=== PATIENT | male | born 1945 | race Caucasian/White ===

== ENCOUNTER 2021-03-15 11:27 | Observation (INO) | payer MEDICARE, BC ==
[~2021-03-15] VITALS: Ht 172.7 cm; Wt 68.0 kg
--- NOTE | 2021-03-15 11:35 | NUR ---
PT TO ROOM FOR EXAM AMBLATORY WITH
[2021-03-15 12:11] LABS: HEMATOCRIT 49.6 % (39.0-50.0); HEMOGLOBIN 16.1 g/dl (14.0-18.0); IMMATURE GRANULOCYTES 0.2 % (0.0-5.0); MEAN CELL VOLUME 85.7 fL CALC (80.0-100.0); MEAN CORPUSCULAR HGB 27.8 pG CALC (26.0-32.0); MEAN CORPUSCULAR HGB CONC 32.5 g/dL CAL (32.0-36.0); NEUT# 2.84 thou/uL (1.82-7.42); RED BLOOD COUNT 5.79 mill/uL (4.70-6.10); RED CELL DISTRI WIDTH 13.4 % (11.5-15.5)
[2021-03-15 12:21] LABS: ALBUMIN 4.3 g/dL (3.2-5.0); ALKALINE PHOSPHATASE 91 u/l (38-126); ANION GAP 16 (6-22 (CALC)); BILIRUBIN, TOTAL 0.5 mg/dL (0.0-1.4); BUN 33 mg/dL (8-23); BUN/CREATININE RATIO 24 (12-20 (CALC)); CARBON DIOXIDE 23 mmol/l (22-30); CHLORIDE 107 mmol/l (95-108); CREATININE 1.3 mg/dL (0.7-1.3); GFR 54 ML/MIN (>=60 (CALC)); GFR FOR AFR.AMER. > 60 ML/MIN (>=60 (CALC)); POTASSIUM 4.5 mmol/l (3.5-5.1); SGOT/AST 41 u/l (19-48); SODIUM 142 mmol/l (137-146); TOTAL PROTEIN 7.8 g/dL (6.3-8.2)
--- NOTE | 2021-03-15 12:40 | NUR ---
PT RESTING QUIETLY ON STRETCHER, ADVISED PT OF FLU AND COVID POSITIVE, DID A RESPIRATORY PANEL PER ORDER TO BE SENT TO HEALTH DEPT.
[2021-03-15 13:07] LABS: URINE BILIRUBIN - DIPSTICK NEGATIVE (NEGATIVE); URINE BLOOD DIPSTICK NEGATIVE (NEGATIVE); URINE COLOR YELLOW; URINE GLUCOSE - DIPSTICK NEGATIVE (NEGATIVE); URINE KETONE TRACE mg/dL (NEGATIVE); URINE LEUK ESTERASE NEGATIVE (NEGATIVE); URINE PROTEIN - DIPSTICK NEGATIVE (NEG-TRACE); URINE SPECIFIC GRAVITY 1.025; URINE UROBILINOGEN - DIPSTICK 0.2 E.U./dL (0.2)
[2021-03-15 13:28] LABS: URINE NITRITE - DIPSTICK NEGATIVE (Negative)
--- NOTE | 2021-03-15 14:04 | NUR ---
PT DENIES ANY PAIN AT THIS TIME, STATES JUST FEELS TIRED.
--- NOTE | 2021-03-15 15:37 | NUR ---
SUMAN GU SPEAKING WITH PT. TRIED TO CALL REPORT TO MED SURG BUT NURSE UNABLE TO TAKE REPORT
--- NOTE | 2021-03-15 16:48 | NUR ---
STILL WAITING FOR MED SURG TO CALL FOR REPORT
--- NOTE | 2021-03-15 17:16 | NUR ---
PT TAKEN TO MED SURG PER W/C.
[2021-03-15 17:31] VITALS: BP 117/66
[2021-03-15 18:54] VITALS: BP 117/66
--- NOTE | 2021-03-15 20:00 | NUR ---
telemetry report rec'd per lam peñaloza sr hr 60
--- NOTE | 2021-03-15 21:20 | NUR ---
awake. watching tv. nad. hall monitor shows sinus rhythm hr 60. #20 lfa ivf infusing well. po fluids taken well. voids per urinal. fall & air/contact precautions cont.
[2021-03-16] VITALS: BP 127/68
--- NOTE | 2021-03-16 00:05 | NUR ---
telemetry report rec'd per jh fritz . sb 50.
[2021-03-16 04:00] VITALS: BP 134/70
--- NOTE | 2021-03-16 04:00 | NUR ---
amb per request to bathroom. cassandra jordan. telemetry report rec'd per jh fritz . sr hr 79.
--- NOTE | 2021-03-16 04:52 | NUR ---
xray here. pcxr obtained.
[2021-03-16 05:21] LABS: IMMATURE GRANULOCYTES 0.7 % (0.0-5.0); MEAN CELL VOLUME 87.2 fL CALC (80.0-100.0); MEAN CORPUSCULAR HGB CONC 32.2 g/dL CAL (32.0-36.0); NEUT# 1.64 thou/uL (1.82-7.42); RED BLOOD COUNT 4.85 mill/uL (4.70-6.10); RED CELL DISTRI WIDTH 13.6 % (11.5-15.5)
[2021-03-16 05:38] LABS: HEMATOCRIT 42.3 % (39.0-50.0); HEMOGLOBIN 13.6 g/dl (14.0-18.0)
[2021-03-16 06:00] LABS: ALKALINE PHOSPHATASE 66 u/l (38-126); ANION GAP 11 (6-22 (CALC)); BILIRUBIN, TOTAL 0.4 mg/dL (0.0-1.4); BUN 24 mg/dL (8-23); BUN/CREATININE RATIO 30 (12-20 (CALC)); C-REACTIVE PROTEIN 1.8 mg/dL (0-0.9); CARBON DIOXIDE 22 mmol/l (22-30); CHLORIDE 114 mmol/l (95-108); CREATININE 0.8 mg/dL (0.7-1.3); GFR > 60 ML/MIN (>=60 (CALC)); GFR FOR AFR.AMER. > 60 ML/MIN (>=60 (CALC)); POTASSIUM 4.6 mmol/l (3.5-5.1); SGOT/AST 36 u/l (19-48); SODIUM 142 mmol/l (137-146)
[2021-03-16 06:02] LABS: ALBUMIN 3.1 g/dL (3.2-5.0); TOTAL PROTEIN 5.9 g/dL (6.3-8.2)
--- NOTE | 2021-03-16 08:00 | NUR ---
REPORT RECEIVED FROM CHARLES PONCE. PT AWAKE ALERT AND APPROPRIATE. VSS. SPO2 89% ON RA. PT OOB AND USING RESTROOM WITHOUT THE USE OF OXYGEN PRIOR TO VS CHECK. PLACED ON 2L OF OXYGEN AND SATS EASILY REACH 95%. PT DENIES SOB OR DISCOMFORT. CALL LIGHT WITHIN REACH. INSTRUCTED PT TO CALL FOR ASSISTANCE, VERBALIZES UNDERSTANDING.
[2021-03-16 08:25] VITALS: BP 131/95
--- NOTE | 2021-03-16 10:32 | NUR ---
The patient is screened for PT intervention and no needs are identified at this time
--- NOTE | 2021-03-16 11:35 | NUR ---
6 MINUTE WALK TEST PERFORMED. PT AT REST WITHOUT OXYGEN HAD SAT OF 94%. THROUGHOUT THE WALK SATS REMAINED AROUND 93%, BUT DID BRIEFLY DROP TO 91%. UPON RESTING AAIN WITHOUT OXYGEN SATS RETURNED TO 94%. PT DID SAY, HE FELT SLIGHTLY WINDED DURING THE WALK, BUT NOT BAD. DOCUMENTATION COMPLETED AND PLACED IN CHART.
[2021-03-16] MEDS ORDERED: PEPCID20 MG PO (11:44)
[2021-03-16] MEDS ORDERED: ASPIRIN REGULA325 M1 PO (11:44)
[2021-03-16] MEDS ORDERED: ZPAK PO (11:44)
[2021-03-16] MEDS ORDERED: TAM75CAP PO (11:44)
--- NOTE | 2021-03-21 11:21 | NUR ---
Pneumonia post discharge follow up call completed today. Pt. states he is not doing great. Feels he may be slightly more SOB, still having intermittent fevers. Ow sats no higher than 91. Having difficulty eating or drinking. Everything tastes terrible. Pt. feels he may be hydrated. Discussed possible options for food or drink. He will try. Pt. is taking medication prescribed at discharge without issue. No follow up appt. has been made. PCP is in [place]. Instructed pt to come to ED if he feels he is getting worse. If he is not able to eat or drink in the next day or so, he needs to contact us. Pt. lives with who is monitoring his progress closely. No needs or concerns expressed at this time.
== END 2021-03-16 13:10 | disposition home or self-care (01) ==
LOC: ED 11:27 → ED-I 13:27 → ED 14:07 → MS2 14:08
PROVIDERS: Family Medicine; Nurse Practitioner; ADMIT Hospitalist; ATTEND Hospitalist
DX: U07.1 COVID-19 (principal); J10.1 Influenza due to other identified influenza virus with other respiratory manifestations; N17.9 Acute kidney failure, unspecified; I71.4 Abdominal aortic aneurysm, without rupture
CPT/HCPCS: G0378; J1650

== ENCOUNTER 2021-03-22 10:42 | Inpatient (IN) | payer MEDICARE, BC ==
[~2021-03-22] VITALS: Ht 172.7 cm; Wt 67.0 kg
[~2021-03-22 10:42] MED LIST: ASPIRIN REGULA325 M1 PO; PEPCID20 MG PO; TAM75CAP PO; ZPAK PO
--- NOTE | 2021-03-22 11:15 | NUR ---
PT TO ROOM 14 VIA WC ABLE TO STAND AND TRANSFER SELF TO STRETCHER.
[2021-03-22 12:12] LABS: HEMATOCRIT 45.9 % (39.0-50.0); IMMATURE GRANULOCYTES 0.7 % (0.0-5.0); MEAN CELL VOLUME 85.5 fL CALC (80.0-100.0); MEAN CORPUSCULAR HGB 27.9 pG CALC (26.0-32.0); MEAN CORPUSCULAR HGB CONC 32.7 g/dL CAL (32.0-36.0); NEUT# 6.07 thou/uL (1.82-7.42); RED BLOOD COUNT 5.37 mill/uL (4.70-6.10); RED CELL DISTRI WIDTH 13.4 % (11.5-15.5)
[2021-03-22 12:27] LABS: ALBUMIN 3.6 g/dL (3.2-5.0); ALKALINE PHOSPHATASE 65 u/l (38-126); ANION GAP 15 (6-22 (CALC)); BUN 27 mg/dL (8-23); BUN/CREATININE RATIO 31 (12-20 (CALC)); CARBON DIOXIDE 23 mmol/l (22-30); CHLORIDE 111 mmol/l (95-108); CREATININE 0.9 mg/dL (0.7-1.3); GFR > 60 ML/MIN (>=60 (CALC)); GFR FOR AFR.AMER. > 60 ML/MIN (>=60 (CALC)); SGOT/AST 29 u/l (19-48); SODIUM 145 mmol/l (137-146)
[2021-03-22 12:33] LABS: TOTAL PROTEIN 7.2 g/dL (6.3-8.2)
[2021-03-22 13:11] LABS: C-REACTIVE PROTEIN 5.3 mg/dL (0-0.9)
--- NOTE | 2021-03-22 14:16 | NUR ---
REPORT TO [facility]
--- NOTE | 2021-03-22 14:52 | NUR ---
PATIENT TAKEN TO MED/SURG 267
--- NOTE | 2021-03-22 15:46 | NUR ---
RECEIVE REPORT FROM [facility]. PATIENT STABLE NO REPORT PAIN OR DISCONFORT. PATIENT IN O2 2L NASAL CANNULA. VITAL SIGNS STABLE AT THIS TIME. COMPLETE ADMISSION PROCESS EDUCATED PATIENT ABOUT MEDICATIONS, NURSING AND CLINICAL PLAN. PATIENT REPORT UNDERSTAND
[2021-03-22 15:49] VITALS: BP 137/65
[2021-03-22 18:50] VITALS: BP 142/78
--- NOTE | 2021-03-22 19:35 | NUR ---
PT RESTING IN BED WATCHING TV, NO SIGNS OF DISTRESS NOTED, RESP EVEN AND UNLABORED, PT ALERT AND ORIENTED X3, DISCUSSED POC, PT ON 02 2L NC, DENIES ANY COMPLAINTS AT THIS TIME, SKIN INTACT, IV TO RAC FLUSHED WELL. ASSESSMENT REVIEW COMPLETED, CALL LIGHT IN REACH,CONTINUE TO MONITOR.
--- NOTE | 2021-03-22 21:14 | NUR ---
PT RESTING IN BED, NO SIGNS OF DISTRESS NOTED, RESP EVEN AND UNLABORED. PT MEDICATED PER MAR, FLUTTER VALVE AND INCENTIVE SPIROMETER. PT EDUCATED ON USE, INCENTIVE SPIROMETER TOTAL VOLUME 2000ML X10 REPETITIONS, FLUTTER VALVE 200 X5 REPETITIONS PT TOLERATED WELL, ENCOURAGED ITS USE. CALL LIGHT IN REACH,CONTINUE TO MONITOR.
[2021-03-23] VITALS: BP 128/74
--- NOTE | 2021-03-23 | NUR ---
PT RESTING IN BED, WITH EYES CLOSED, EASILY AROUSED TO VERBAL STIMULI, VOICES NO NEEDS OR COMPLAINTS AT THIS TIME, WARM BLANKET PROVIDED. CALL LIGHT IN REACH,CONTINUE TO MONITOR.
[2021-03-23 04:00] VITALS: BP 143/86
--- NOTE | 2021-03-23 04:00 | NUR ---
PT RESTING IN BED, NO SIGNS OF DISTRESS NOTED, RESP EVEN AND UNLABORED. GRAVITY FLOW IRRIGATOR AT BEDSIDE OBTAINING LABS, VOICES NO NEEDS OR COMPLAINTS AT THIS TIME, CALL LIGHT IN REACH,CONTINUE TO MONITOR.
[2021-03-23 05:15] LABS: HEMATOCRIT 40.6 % (39.0-50.0); HEMOGLOBIN 13.4 g/dl (14.0-18.0); IMMATURE GRANULOCYTES 0.7 % (0.0-5.0); MEAN CELL VOLUME 85.1 fL CALC (80.0-100.0); MEAN CORPUSCULAR HGB 28.1 pG CALC (26.0-32.0); NEUT# 4.18 thou/uL (1.82-7.42); RED BLOOD COUNT 4.77 mill/uL (4.70-6.10); RED CELL DISTRI WIDTH 13.3 % (11.5-15.5)
[2021-03-23 05:22] LABS: ALKALINE PHOSPHATASE 59 u/l (38-126); ANION GAP 12 (6-22 (CALC)); BILIRUBIN, TOTAL 0.6 mg/dL (0.0-1.4); BUN 25 mg/dL (8-23); BUN/CREATININE RATIO 33 (12-20 (CALC)); C-REACTIVE PROTEIN 5.1 mg/dL (0-0.9); CALCULATED LDLCHOLESTEROL 86 mg/dL (62-129 (CALC)); CARBON DIOXIDE 21 mmol/l (22-30); CHLORIDE 116 mmol/l (95-108); CHOLESTEROL HDL RATIO 5.2 (<4.4 (CALC)); CREATININE 0.7 mg/dL (0.7-1.3); GFR > 60 ML/MIN (>=60 (CALC)); GFR FOR AFR.AMER. > 60 ML/MIN (>=60 (CALC)); HDL CHOLESTEROL 27 mg/dL (>=40); MAGNESIUM 2.3 mg/dL (1.6-2.3); POTASSIUM 4.2 mmol/l (3.5-5.1); SGOT/AST 26 u/l (19-48); SODIUM 144 mmol/l (137-146); TOTAL CHOLESTEROL 139 mg/dl (0-199); TOTAL PROTEIN 5.8 g/dL (6.3-8.2); TOTAL TRIGLYCERIDES 131 mg/dl (30-149); VLDL CHOLESTROL 26 mg/dl (0-38 (CALC))
[2021-03-23 08:00] VITALS: BP 143/86
--- NOTE | 2021-03-23 10:40 | NUR ---
REPORT RECEIVE THIS MORNING FROM [facility]. PATIENT ALERT AND ORIENTED X3. NO RESPIRATORY DISTRESS. EDUCATED PATIENT ABOUT MEDICATIONS AND NURSING CARE FOR TODAY PATIENT REFER UNDERSTAND.
[2021-03-23 11:01] VITALS: BP 136/78
[2021-03-23 15:19] VITALS: BP 131/70
[2021-03-23 19:00] VITALS: BP 117/72
--- NOTE | 2021-03-23 21:18 | NUR ---
PT RESTING IN BED, NO SIGNS OF DISTRESS NOTED,RESP EVEN AND UNLABORED, PT ALERT AND ORIENTED X3, DISCUSSED POC, PT DENIES ANY NEEDS OR COMPLAINTS AT THIS TIME. 02 2L NC, ENCOURAGED USE OF INCENTIVE SPIROMETER AND FLUTTER VALVE, PT DEMONSTRATED IT'S USE. IV FLUSHED AND INITIATED IV ANTIBIOTIC, ASSESSMENT REVIEW COMPLETED, CALL LIGHT IN REACH,CONTINUE TO MONITOR.
--- NOTE | 2021-03-23 22:39 | NUR ---
IV ANTIBIOTIC INFUSION COMPLETE, PT VOICES NO NEEDS OR COMPLAINTS AT THIS TIME, CALL LIGHT IN REACH,CONTINUE TO MONITOR.
[2021-03-24] VITALS: BP 127/68
--- NOTE | 2021-03-24 | NUR ---
PT RESTING IN BED WATCHING TV, NO SIGNS OF DISTRESS NOTED, RESP EVEN AND UNLAOBRED. CALL LIGHT IN REACH,CONTINUE TO MONITOR.
--- NOTE | 2021-03-24 03:51 | NUR ---
PT RESTING IN BED, NO SIGNS OF DISTRESS NOTED, RESP EVEN AND UNLABORED. PT VOICES NO NEEDS OR COMPLAINTS AT THIS TIME, CALL LIGHT IN REACH,CONTINUE TO MONITOR.
[2021-03-24 04:00] VITALS: BP 130/72
[2021-03-24 05:55] LABS: ALBUMIN 2.9 g/dL (3.2-5.0); ALKALINE PHOSPHATASE 51 u/l (38-126); ANION GAP 13 (6-22 (CALC)); BILIRUBIN, TOTAL 0.5 mg/dL (0.0-1.4); BUN 27 mg/dL (8-23); BUN/CREATININE RATIO 34 (12-20 (CALC)); CARBON DIOXIDE 24 mmol/l (22-30); CHLORIDE 111 mmol/l (95-108); CREATININE 0.8 mg/dL (0.7-1.3); GFR > 60 ML/MIN (>=60 (CALC)); GFR FOR AFR.AMER. > 60 ML/MIN (>=60 (CALC)); POTASSIUM 4.3 mmol/l (3.5-5.1); SGOT/AST 20 u/l (19-48); SODIUM 144 mmol/l (137-146); TOTAL PROTEIN 5.6 g/dL (6.3-8.2)
[2021-03-24 05:56] LABS: HEMATOCRIT 38.5 % (39.0-50.0); IMMATURE GRANULOCYTES 0.4 % (0.0-5.0); MEAN CORPUSCULAR HGB 28.7 pG CALC (26.0-32.0); MEAN CORPUSCULAR HGB CONC 33.8 g/dL CAL (32.0-36.0); NEUT# 7.52 thou/uL (1.82-7.42); RED BLOOD COUNT 4.53 mill/uL (4.70-6.10); RED CELL DISTRI WIDTH 13.3 % (11.5-15.5)
--- NOTE | 2021-03-24 06:00 | NUR ---
PT RESTING IN BED, NO SIGNS OF DISTRESS NOTED, RESP EVEN AND UNLABORED. PT MEDICATED PER MAR, VOICES NO NEEDS OR COMPLAINTS AT THIS TIME, CALL LIGHT IN REACH,CONTINUE TO MONITOR.
--- NOTE | 2021-03-24 08:00 | NUR ---
REPORT RECEIVED FROM CHARLES RAMOS. PT AWAKE ALERT AND APPROPRIATE. VSS, CALL LIGHT WITHIN REACH. PT DOES NOT APPEAR TO BE IN DISTRESS, INSTRUCTED TO CALL FOR ASSISTANCE. STATES UNDERSTANDING.
[2021-03-24 08:13] VITALS: BP 128/70
[2021-03-24 11:00] VITALS: BP 135/70
--- NOTE | 2021-03-24 12:00 | NUR ---
PT RESTING IN BED. SUCCESSFUL USING PORTABLE OXYGEN TANK TO TAKE SHOWER. NO DISTRESS NOTED AT TIME OF EVEN. TEACHER INSTRUMENTAL PRESENT FOR STANDBY ASSISTANCE. VSS. CALL LIGHT WITHIN REACH. PT DENIES PAIN, SOB OR DISCOMFORT. WILL CONTINUE TO MONITOR
[2021-03-24 15:59] VITALS: BP 128/70
--- NOTE | 2021-03-24 16:00 | NUR ---
PT DENIES NEEDS OR CONCERNS. VSS. CALL LIGHT WITHIN REACH. WILL CONTINUE TO MONITOR.
[2021-03-24 19:00] VITALS: BP 130/85
--- NOTE | 2021-03-24 21:00 | NUR ---
PT RESTING IN BED WATCHING TV, NO SIGNS OF DISTRESS NOTED, RESP EVEN AND UNLABORED PT ALERT AND ORIENTED X3, NO EDEMA, CRACKLES IN LUNG BASES ENCOURAGED PT TO USE INCENTIVE SPIROMETER AND FLUTTER VALVE, SKIN INTACT. IV FLUSHED AND INTIATED IV DOXY, 02 2L NC, VOICES NO NEEDS OR COMPLAINTS AT THIS TIME, ASSESSMENT REVIEW COMPLETED, CALL LIGHT IN REACH,CONTINUE TO MONITOR.
[2021-03-25] VITALS (7 sets, daily range): BP systolic 114–131; BP diastolic 62–71
--- NOTE | 2021-03-25 | NUR ---
PT RESTING IN BED, MEDICATED PER MAR, VOICES NO NEEDS OR COMPLAINTS, CALL LIGHT IN REACH,CONTINUE TO MONITOR.
--- NOTE | 2021-03-25 04:00 | NUR ---
PT RESTING IN BED, NO SIGNS OF DISTRESS NOTED, RESP EVEN AND UNLABORED. VOICES NO NEEDS OR COMPLAINTS AT THIS TIME, CALL LIGHT IN REACH,CONTINUE TO MONITOR.
[2021-03-25 05:10] LABS: HEMATOCRIT 37.3 % (39.0-50.0); HEMOGLOBIN 12.4 g/dl (14.0-18.0); IMMATURE GRANULOCYTES 0.7 % (0.0-5.0); MEAN CELL VOLUME 84.4 fL CALC (80.0-100.0); MEAN CORPUSCULAR HGB 28.1 pG CALC (26.0-32.0); MEAN CORPUSCULAR HGB CONC 33.2 g/dL CAL (32.0-36.0); NEUT# 6.99 thou/uL (1.82-7.42); RED BLOOD COUNT 4.42 mill/uL (4.70-6.10); RED CELL DISTRI WIDTH 13.2 % (11.5-15.5)
[2021-03-25 05:37] LABS: ALBUMIN 2.7 g/dL (3.2-5.0); ALKALINE PHOSPHATASE 52 u/l (38-126); ANION GAP 12 (6-22 (CALC)); BILIRUBIN, TOTAL 0.6 mg/dL (0.0-1.4); BUN 26 mg/dL (8-23); BUN/CREATININE RATIO 38 (12-20 (CALC)); C-REACTIVE PROTEIN 1.5 mg/dL (0-0.9); CARBON DIOXIDE 21 mmol/l (22-30); CHLORIDE 110 mmol/l (95-108); CREATININE 0.7 mg/dL (0.7-1.3); GFR > 60 ML/MIN (>=60 (CALC)); GFR FOR AFR.AMER. > 60 ML/MIN (>=60 (CALC)); POTASSIUM 4.3 mmol/l (3.5-5.1); SGOT/AST 32 u/l (19-48); SODIUM 139 mmol/l (137-146); TOTAL PROTEIN 5.2 g/dL (6.3-8.2)
--- NOTE | 2021-03-25 08:52 | NUR ---
PT SITTING IN BED. A&O X3. NO DISTRESS NOTED. O2 VIA NC @2L IN PLACE; O2 TITRATED UP TO 3L PT WAS SUSTAINING 88%. DIRECTOR CARDIOLOGY COUGH NOTED, PT REPORTS OCCASSIONAL PHLEGM PRODUCTION. CLEAR/DIMINISHED BREATH SOUNDS UPON AUSCULTATION. ACTIVE BOWEL SOUNDS X4 QUADRANTS. IV REPLACED PT C/O OF "BURNING" WITH INFUSION OF ABX; REDNESS ALSO NOTED TO IV INSERTION SITE. #22G INITIATED TO LH X1 ATTEMPT BY THIS HOTEL STAFF MEMBER, ABX REINITIATED, PT DENIES ANY BURNING. ICE CREAM MIXER IN PLACE; PT HAS BEEN BRADYCARDIC BUT ASYMPTOMATIC. ASSESSMENT COMPLETED. DISCUSSED POC. ISOLATION PRECAUTIONS IN PLACE. CALL LIGHT WITHIN REACH.
--- NOTE | 2021-03-25 11:00 | NUR ---
DR CARMONA AT BEDSIDE DISCUSSING POC
--- NOTE | 2021-03-25 11:36 | NUR ---
PT SITTING IN BED. ROTARY DRUM DYER COUGH NOTED; ORDERED ROBITUSSIN GIVEN. NO OTHER NEEDS AT THIS TIME. O2 REMAINS UNCHANGED. CALL LIGHT WITHIN REACH.
--- NOTE | 2021-03-25 18:20 | NUR ---
PT SITTING IN BED NO DISTRESS NOTED. O2 REMAINS UNCHANGED. CALL LIGHT WITHIN REACH.
--- NOTE | 2021-03-25 20:43 | NUR ---
PATIENT RESTING IN BED AT THIS TIME WITH HOB ELEVATED.O2 VIA NASAL CANNULA IN PLACE AT 3LPM WITH O2 SAT OF 95%. TELE MONITOR IN PLACE WITH LAST READING 48-HX OF BRADYCARDIA. SALINE LOCK TO LEFT HAND INTACT AND HEALTHY AT THIS TIME. DOXYCYCLINE HUNG ORDERED. LUNGS ARE CLEAR. ABD SOFT WITH ACTIVE BS. LAST BM WAS TODAY. DENIES ANY DIFFICULTY WITH URINATION. NO PEDAL EDEMA NOTED. PULSES ARE PALPABLE. PATIENT WITH OCC PRODUCTIVE COUGH PER PATIENT WITH SMALL AMT OF YELLOW SEACREATIONS. ENCOURAGED TO USE IS Q1H WHILE AWAKE IN REPS OF 10. VERBALIZES UNDERSTANDING. ENCOURAGED PRONING. SAFETY PRECAUTIONS REINFORCED. CALL LIGHT IN REACH. WILL CONT TO MONITOR.
--- NOTE | 2021-03-25 22:46 | NUR ---
SITTING UP IN BED WITH O2 VIA NASAL CANNULA IN PLACE AT 3LPM. DOXYCYCLINE COMPLETED AND LEFT HAND SALINE LOCK FLUSHED. MEDICATED WITH XANAX 0.25MG PO FOR SLEEP. SAFETY PRECAUTIONS REINFORCED. CALL LIGHT IN REACH. WILL CONT TO MONITOR.
--- NOTE | 2021-03-26 00:45 | NUR ---
PATIENT RESTING IN BED AT THIS TIME WITH O2 VIA NASAL CANNULA IN PLACE-LAST O2 SAT WAS 95%. TELE MONITOR IN PLACE WITH LAST READING BEING SB-45. SALINE LOCK TO LEFT HAND INTACT. CALL LIGHT IN REACH. WILL CONT TO MONITOR.
--- NOTE | 2021-03-26 04:24 | NUR ---
PATIENT RESTING IN BED AT THIS TIME WITH O2 VIA NASAL CANNULA IN PLACE AT 3LPM. TELE MONITOR IN PLACE. LAB WORK DRAWN ORDERED. SAFETY PRECAUTIONS REINFORCED CALL LIGHT IN REACH. WILL CONT TO MONITOR.
[2021-03-26 04:41] VITALS: BP 122/60
[2021-03-26 06:02] LABS: HEMATOCRIT 38.5 % (39.0-50.0); HEMOGLOBIN 12.7 g/dl (14.0-18.0); MEAN CELL VOLUME 85.2 fL CALC (80.0-100.0); MEAN CORPUSCULAR HGB 28.1 pG CALC (26.0-32.0); RED BLOOD COUNT 4.52 mill/uL (4.70-6.10); RED CELL DISTRI WIDTH 13.1 % (11.5-15.5)
[2021-03-26 06:28] LABS: ALBUMIN 2.6 g/dL (3.2-5.0); ALKALINE PHOSPHATASE 49 u/l (38-126); ANION GAP 14 (6-22 (CALC)); BILIRUBIN, TOTAL 0.6 mg/dL (0.0-1.4); BUN 23 mg/dL (8-23); BUN/CREATININE RATIO 36 (12-20 (CALC)); CARBON DIOXIDE 20 mmol/l (22-30); CHLORIDE 108 mmol/l (95-108); CREATININE 0.6 mg/dL (0.7-1.3); GFR > 60 ML/MIN (>=60 (CALC)); GFR FOR AFR.AMER. > 60 ML/MIN (>=60 (CALC)); POTASSIUM 4.3 mmol/l (3.5-5.1); SGOT/AST 55 u/l (19-48); SODIUM 138 mmol/l (137-146); TOTAL PROTEIN 5.2 g/dL (6.3-8.2)
--- NOTE | 2021-03-26 06:45 | NUR ---
REPORT REC FROM Feliz FLORES RN
[2021-03-26 08:15] VITALS: BP 124/66
--- NOTE | 2021-03-26 08:15 | NUR ---
PT SITTING IN RECLINER. A&O X3. NO DISTRESS NOTED. PT REPORTS TAKING OFF O2 FOR A "WHILE" 6 MIN WALK TEST PREFORMED AT THIS TIME. O2 VIA RA 85%. O2 REAPPLIED @3L O2 NOW 90-91%. ENCOURGAED NOT TO TAKE O2 OFF. PT DEMONSTRATING PROPER USE OF IS DEVICE. CLEAR/DIMINSHED BREATH SOUNDS UPON AUSCULTATION. ACTIVE BOWEL SOUNDS X4 QUADRANTS. SENIOR DIRECTOR IN PLACE; SB. #22G LH PATENT. PT WANTING TO BE D/C TODAY. EDUCATED PT ON THE NEED OF O2. ASSESSMENT COMPLETED. DISCUSSED POC. CALL LIGHT WITHIN REACH.
--- NOTE | 2021-03-26 08:39 | NUR ---
PT REFUSED IV DOXY AND NEW IV INITIATION; STATED IT BURNED DURING INFUSION. DR CARMONA NOTIFIED OF PTS REQUEST TO CHANGE TO PO; DR CARMONA AGREEABLE. 6 MIN WALK TEST RESULTS COMMUNICATED WITH AND AURE; ALSO GIVEN TO CM.
[2021-03-26 10:33] VITALS: BP 126/65
--- NOTE | 2021-03-26 10:55 | NUR ---
DR CARMONA AND Melissa WEST MULTIPLE DRUM SANDER AT BEDSIDE DISCUSSING POC
[2021-03-26] MEDS ORDERED: VIBRAMYCIN100 M2 PO (11:02)
[2021-03-26] MEDS ORDERED: DECADRON6 MG PO (11:02)
[2021-03-26] MEDS ORDERED: TESSALON PERLE100 MG PO (11:03)
--- NOTE | 2021-03-26 12:00 | NUR ---
PT UPDATED ON D.C PLANNING WITH HOME O2. PT VERBALIZED AND AGREEABLE TO PLAN
--- NOTE | 2021-03-26 13:29 | NUR ---
Discharge instructions given. Patient verbalizes understanding of same. Discharged in stable condition via Wheelchair to Home with home oxygen accompanied by staff. All belongings sent with pt. Pt instructed to return with new or worsening symptoms.
--- NOTE | 2021-03-29 12:57 | NUR ---
Pneumonia post discharge follow up call completed today. Pt. states he is doing much better. No fever, chills, or increased SOB. Pt. is using oxygen, but thinks he will be done with it next week. Pt is taking prescribed medication without issue. Follow up appt with PCP is scheduled next week. No needs or concerns. Pt. is very grateful for the care he received at [facility].
== END 2021-03-26 13:26 | disposition home or self-care (01) | DRG 177 ==
LOC: ED 10:42 → ED-I 12:50 → ED 13:35 → MS2 13:36
PROVIDERS: Family Medicine; Nurse Practitioner; ADMIT Internal Medicine; ATTEND Internal Medicine
PROC: XW033E5 Introduction of Remdesivir Anti-infective into Peripheral Vein, Percutaneous Approach, New Technology Group 5 (ICD-10-PCS; principal; 2021-03-22)
DX: U07.1 COVID-19 (principal); J12.82 Pneumonia due to coronavirus disease 2019; J96.01 Acute respiratory failure with hypoxia; I71.4 Abdominal aortic aneurysm, without rupture; R00.1 Bradycardia, unspecified; T37.5X5A Adverse effect of antiviral drugs, initial encounter
CPT/HCPCS: J1650; Q9967

== ENCOUNTER 2021-04-05 19:42 | Emergency (ER) | payer MEDICARE, BC ==
[~2021-04-05] VITALS: Ht 172.7 cm; Wt 65.9 kg
[~2021-04-05 19:42] MED LIST changes: +DECADRON6 MG PO; +TESSALON PERLE100 MG PO; +VIBRAMYCIN100 M2 PO
[2021-04-05] MEDS ORDERED: GOLYTELY PO (23:11)
[2021-04-05 23:32] VITALS: BP 149/73
[2021-04-06] MEDS ORDERED: GOLYTELY PO (01:10)
== END 2021-04-05 23:38 | disposition home or self-care (01) ==
LOC: ED 19:42
DX: K59.00 Constipation, unspecified (principal); I71.4 Abdominal aortic aneurysm, without rupture; Z86.16 Personal history of COVID-19